=== PATIENT | female | born 1930 ===

== ENCOUNTER 2018-06-22 16:40 | Inpatient (IN) | payer SELFPAY ==
[2018-06-22 16:42] VITALS: BMI 34.2
--- NOTE | 2018-06-22 16:44 | C.PDOC ---
History Of Present Illness 88 year old female presents to the ED BIBA for altered mental status that began 26 hours ago. As per family, patient is ambulatory but homebound as per baseline. Patient was nonverbal with altered breathing pattern today. HPI limited due to patient's clinical condition. Time Seen by Provider: 06/22/18 16:42 Chief Complaint (Nursing): Altered Mental Status History Per: EMS, Family History/Exam Limitations: Clinical Condition Onset/Duration Of Symptoms: Hrs Onset Of Symptoms: Other (26 hours ago) Current Symptoms Are (Timing): Still Present Usual Baseline: Ambulatory Past Medical History Reviewed: Historical Data, Nursing Documentation, Vital Signs - Medical History PMH: No Chronic Diseases Surgical History: No Surg Hx Family History: States: No Known Family Hx Review Of Systems Review Of Systems: ROS cannot be obtained secondary to pt's inabilty to answer questions. Physical Exam - Physical Exam Appears: Other (unresponsive, PE limited due to pt's clinical condition ) Skin: Warm, Dry Head: Normacephalic Eye(s): bilateral: Other (pinpoint pupils, deviated gaze) Nose: Normal Chest: Symmetrical Cardiovascular: Other (irregularly irregular ) Respiratory: No Rales, No Rhonchi, No Wheezing Extremity: No Normal ROM, Other (flaccid upper and lower extremities ) Neurological/Psych: No Oriented x3, No Normal Speech, Other (unresponsive ) ED Course And Treatment - Laboratory Results Result Diagrams: 06/23/18 04:29 06/23/18 04:29 NIHSS Stroke Scale 2 - Date/Time Evaluation Performed Date Performed: 06/22/18 Time Performed: 16:30 When Was NIHSS Performed: Code Stroke - How Severe is the Stroke Level of Consciousness: 3=Unresponsive LOC to Questions: 2=Neither correct LOC to commands: 2=Neither correct Best Gaze: 1=Partial gaze palsy Visual: 0=No visual loss Facial: 0=Normal Motor Arm - Left: 4=No movement Motor Arm - Right: 4=No movement Motor Leg - Left: 4=No movement Motor Leg - Right: 4=No movement Limb Ataxia: 0=Absent Sensory: 0=Normal Best Language: 3=Mute Dysarthia: 0=Normal articulation Extinction & Inattention (Neglect): 0=Normal, no object Score: 27 rTPA Inclusion/Exclusion - Refusal of Treatment Patient Refused Treatment: No - Inclusion Criteria for Altepase Patient is 18 years or Older: Yes Clinical DX Ischemic Stroke Cause Neurological Deficit: Yes Time of Onset Established Less Than 270 Mins Before TX Begin: No Risk/Benefit Discussed With Patient/Family Member Present: No - Exclusion Criteria for Altepase Uncontrolled Hypertension at Time of TX (SBP>185 or DBP>110): No Less Than 3 Months Had a Recent: Intracranial - Warning to TPA With Conditions Condition: Age Greater Than 75 years, Stroke Severity Too Severe (NIHSS greater than 22) Additional Condition (For 3-4.5 Hour Window): Age Greater Than 80 Medical Decision Making Medical Decision Making: Plan - Bloodwork - CT head/neck - CT head - EKG - CXR - UA - Aspirin 300mg TX - IV fluids - Stroke team consult Code Stroke called. Findings discussed with Radiology. Spoke with Dr. Selby, Neurology. Recommends Aspirin TX and BP control. Discussed with family, patient has a DNR/DNI. Disposition Doctor Will See Patient In The: Hospital Counseled Patient/Family Regarding: Studies Performed, Diagnosis - Disposition Disposition: HOSPITALIZED Disposition Time: 15:00 Condition: CRITICAL - Clinical Impression Clinical Impression: Ischemic stroke - Scribe Statement The provider has reviewed the documentation as recorded by the Scribe Sarah Desai All medical record entries made by the Mariellaibe were at my direction and personally dictated by me. I have reviewed the chart and agree that the record accurately reflects my personal performance of the history, physical exam, medical decision making, and the department course for this patient. I have also personally directed, reviewed, and agree with the discharge instructions and disposition.
[2018-06-22] MEDS ORDERED: Sodium Chloride 0.9% 1,000 ML IV SCH (16:45)
--- NOTE | 2018-06-22 17:20 | CT ---
Date of service: 06/22/2018 PROCEDURE: CT HEAD WITHOUT CONTRAST. HISTORY: Code Stroke COMPARISON: None available. TECHNIQUE: Axial computed tomography images were obtained through the head/brain without intravenous contrast. Radiation dose: Total exam DLP = 957.97 mGy-cm. This CT exam was performed using one or more of the following dose reduction techniques: Automated exposure control, adjustment of the mA and/or kV according to patient size, and/or use of iterative reconstruction technique. FINDINGS: HEMORRHAGE: No intracranial hemorrhage. BRAIN: Cytotoxic edema is identified affecting the right MCA distribution in nearly its entirety, with lucency at the inferior right cerebellar hemisphere compatible with subsegmental right DATA QUALITY CONSULTANT distribution infarct. Local mass effect effaces sulci of the majority the right cerebral hemisphere and partially effaces the right lateral ventricle as well. Midline leftward shift of 5 mm is results from the MCA infarct. No definite intra cranial hemorrhage appreciable at this time. VENTRICLES: No hydrocephalus. Effacement of right lateral ventricle as discussed above. CALVARIUM: Unremarkable. PARANASAL SINUSES: Unremarkable as visualized. No significant inflammatory changes. MASTOID AIR CELLS: Unremarkable as visualized. No inflammatory changes. OTHER FINDINGS: None. IMPRESSION: Large right MCA infarct in evolution with small right DATA QUALITY CONSULTANT infarct affecting right cerebellar hemisphere inferiorly, reflecting direct as well as a bile leak ischemic mechanism. No intracranial hemorrhage appreciable. Limited leftward midline shift of left less than 5 mm the local sulci throughout the right cerebral hemisphere as well as right lateral ventricle are at least partially effaced. Findings discussed with Dr. Paez with written down and read back verification 06/22/2018 5:12 p.m..
[2018-06-22 17:31] LABS: BASO # 0.1 K/uL (0.0-0.2); BASO % 0.5 % (0.0-2.0); HEMOGLOBIN 14.2 g/dL (11.0-16.0); LYMPH # 0.4 K/uL (1.0-4.3); LYMPH % 2.4 % (20.0-40.0); MEAN CELL VOLUME 81.6 fL (81.0-99.0); MEAN CORPUSCULAR HEMOGLOBIN 26.2 pg (27.0-31.0); MEAN PLATELET VOLUME 10.7 fL (7.2-11.7); MONO # 1.4 K/uL (0.0-0.8); MONO % 7.9 % (0.0-10.0); NEUT # 15.6 K/uL (1.8-7.0); NEUT % 89.2 % (50.0-75.0); PLATELET COUNT 189 K/uL (130-400); RBC 5.44 Mil/uL (3.80-5.20); RED CELL DISTRIBUTION WIDTH 14.9 % (11.5-14.5); WHITE BLOOD COUNT 17.4 K/uL (4.8-10.8)
--- NOTE | 2018-06-22 17:38 | CT ---
Date of service: 06/22/2018 PROCEDURE: CT Angiography of the Brain and Neck. HISTORY: change of MS COMPARISON: None available. TECHNIQUE: CT angiography of the head and neck was performed following intravenous contrast administration. Coronal and sagittal maximum intensity projection reformatted images were generated. Contrast Dose: Visipaque 320, 100 cc Radiation dose: Total exam DLP = 603.15 mGy-cm. This CT exam was performed using one or more of the following dose reduction techniques: Automated exposure control, adjustment of the mA and/or kV according to patient size, and/or use of iterative reconstruction technique. FINDINGS: INTERNAL CEREBRAL ARTERIES: The right internal carotid artery remains occluded from skull base through supraclinoid segments, without reconstitution. The left skull base, petrous, cavernous and supraclinoid segments are widely patent. Trace atherosclerotic plaques identified at the left ICA cavernous segment. ANTERIOR CEREBRAL ARTERIES: The left A1 and A2 [place] segments are widely patent and well opacified. Cross-filling of the right A2 and A3 branches is a accomplished through a patent anterior communicating artery. The right A1 segment is only opacified at mid and distal segments. MIDDLE CEREBRAL ARTERIES: The right M1 and M2 MCA segments are poorly identified, however, perisylvian and M3 branches are opacified through collaterals but are not as enhances brightly as the left perisylvian and M3 branches. The left M1 and M2 segments are widely patent with left perisylvian branches patent grossly. POSTERIOR CIRCULATION: Basilar Artery: Unremarkable. Distal Vertebral Arteries: Left dominant vertebrobasilar circulation is encountered with both distal vertebral arteries patent. Posterior Cerebral Arteries: Unremarkable. Posterior Inferior Cerebellar Arteries: Unremarkable. 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 Common Carotid arteries: Variable atherosclerosis appreciated primarily represented by soft plaque at the proximal and mid segments of the right common carotid artery without significant stenosis occurring. It appears patent through its bifurcation. Left common carotid artery is widely patent throughout with only trace atherosclerotic plaque related, partially calcified. No evidence to suggest common carotid artery dissection. There is moderate ectasis of the proximal bilateral common carotid arteries as well as the brachycephalic artery. Internal Carotid arteries: The right internal carotid artery is occluded at its origin. No reconstitution is appreciated throughout the remainder of the right ICA. The left ICA is widely patent. No dissection is appreciated within opacified ICA segments bilaterally. External Carotid arteries: There is a moderate stenosis of the proximal right ECA which is otherwise widely patent. Left ECA appears unremarkable. Vertebral arteries: The bilateral vertebral arteries appear normal in caliber from their origins to their distal cervical segments. No significant stenosis or definite pattern of dissection. ANEURYSM/ VASCULAR MALFORMATIONS: None. OTHER FINDINGS: None. IMPRESSION: 1. 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 Right M1 M2 MCA branches are occluded as well as proximal right A1 [place] branch. Collateralization reconstitutes mid distal right A1 [place] as well as perisylvian and M3 MCA branches right MCA. 2. Other than limited atherosclerotic plaque at the cavernous left ICA, the left neck and head angiography appears widely patent without significant stenosis. 3. 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 Findings discussed with Dr. Paez with written down and read back verification 06/22/2018, 5:30 p.m..
[2018-06-22 17:41] LABS: INR 1.4; PROTHROMBIN TIME 14.9 SECONDS (9.7-12.2)
[2018-06-22 17:44] LABS: ALB/GLOB RATIO 0.9 (1.0-2.1); ALBUMIN 3.1 g/dL (3.5-5.0); CALCIUM 9.3 mg/dl (8.6-10.4)
[2018-06-22 18:00] LABS: TROPONIN I 0.683 ng/mL (0.00-0.120)
--- NOTE | 2018-06-22 18:15 | RAD ---
Date of service: 06/22/2018 HISTORY: Code Stroke COMPARISON: No prior. FINDINGS: LUNGS: Cardiomegaly identified without definite pulmonary vascular congestion evident. Reticular markings are diffuse identified which may indicate chronic interstitial pulmonary disease no acute component is not excluded. No right pleural effusion. No pneumothorax bilaterally. Trace of pleural effusion not excluded. PLEURA: As above. CARDIOVASCULAR: Calcific atherosclerotic changes are seen related to the thoracic aorta. Unipolar permanent cardiac pacemaker is advised placed via left subclavian approach with the generator overlying the left pectoralis region and solitary lead extending to the heart. OSSEOUS STRUCTURES: No significant abnormalities. VISUALIZED UPPER ABDOMEN: Normal. OTHER FINDINGS: None. IMPRESSION: Cyst findings suspicious for probable chronic interstitial pneumonitis though an acute component is not excluded overlying this. Cardiomegaly. No pulmonary vascular congestion. Trace left pleural effusion not excluded.
--- NOTE | 2018-06-22 18:20 | CP.PCM.HP ---
<Estrella Chilel - Last Filed: 06/22/18 19:14> History of Present Illness - History of Present Illness History of Present Illness: PGY1 Medicine History and Physical Exam Note for Dr. John Patient is an 87 year old [place] Leonean speaking female with a PMH of CAD, CHF, Atrial fibrillation, pacemaker, HTN, iron deficiency anemia, HLD, gastritis, aortic aneurysm, and thyroid nodule who was brought in by EMS due to being found unresponsive by family members at home. Patient lives at home and usually is responsive and able to communicate. Per Patient's family, Patient was last seen normal at 2PM yesterday, but she became complete unresponsive and flaccid, per Family, which prompted them to call EMS. Patient has known heart condition and HTN and has a pace-maker (per Patient's family.) Complete ROS could not be obtained due to clinical condition. PMH: CAD, CHF, Atrial Fibrillation, pacemaker, HTN, iron deficiency anemia, HLD, gastritis, aortic aneurysm, and thyroid nodule Meds: Eliquis 5 mg twice daily Lasix 40 mg daily Metoprolol succinate 25 mg daily Ferrous Sulfate 325 mg daily Losartan 50 mg daily Oxycodone 1 tab every 4 hours as needed for pain Colace 100 mg twice daily Allergies: NKDA PSH: Pacemaker FH: denies SH: occasional alcohol drinker, denies tobacco and elicit drug use Present on Admission - Present on Admission Any Indicators Present on Admission: No History of DVT/PE: No History of Uncontrolled Diabetes: No Urinary Catheter: No Decubitus Ulcer Present: No Review of Systems - Review of Systems Systems not reviewed;Unavailable: Acuity of Condition, Other (Unable to obtain complete ROS due to clinical condition; Patient unresponsive ) Past Patient History - Past Social History Smoking Status: Unknown If Ever Smoked - PSYCHIATRIC Hx Substance Use: No - SURGICAL HISTORY Hx Surgeries: No - ANESTHESIA Hx Anesthesia: No Meds Allergies/Adverse Reactions: Allergies Allergy/AdvReac Type Severity Reaction Status Date / Time No Known Allergies Allergy Verified 06/22/18 16:42 Physical Exam - Constitutional Appears: Chronically Ill Additional comments: unresponsive. - Head Exam Head Exam: ATRAUMATIC, NORMAL INSPECTION, NORMOCEPHALIC - Eye Exam Eye Exam: absent: PERRL Pupil Exam: Fixed - ENT Exam ENT Exam: Mucous Membranes Dry - Neck Exam Neck exam: Positive for: Normal Inspection - Respiratory Exam Respiratory Exam: Clear to Auscultation Bilateral - Cardiovascular Exam Cardiovascular Exam: +S1, +S2 Additional comments: ventricular paced rhythm - GI/Abdominal Exam GI & Abdominal Exam: absent: Distended, Guarding - Extremities Exam Additional comments: bilateral LE cool to touch and appear mottled - Neurological Exam Additional comments: Patient unresponsive to pain and/or name Corneal reflex absent - Expanded Neurological Exam Expanded Coma Scale Eye Opening: SPONTANEOUS Coma Scale Verbal: None - Skin Skin Exam: Dry, Pallor Additional comments: bilateral lower extremities are mottled Results - Vital Signs Recent Vital Signs: Last Vital Signs Temp Pulse Resp 12 06/22/18 16:42 BP Pulse Ox 100 06/22/18 16:42 - Labs Result Diagrams: 06/22/18 17:26 06/22/18 17:26 Labs: Laboratory Results - last 24 hr 06/22/18 06/22/18 06/22/18 17:26 17:26 17:26 WBC 17.4 H RBC 5.44 H Hgb 14.2 Hct 44.4 MCV 81.6 MCH 26.2 L MCHC 32.0 L RDW 14.9 H Plt Count 189 MPV 10.7 Neut % (Auto) 89.2 H Lymph % (Auto) 2.4 L [place] % (Auto) 7.9 Eos % (Auto) 0.0 Baso % (Auto) 0.5 Neut # (Auto) 15.6 H Lymph # (Auto) 0.4 L [place] # (Auto) 1.4 H Eos # (Auto) 0.0 Baso # (Auto) 0.1 PT 14.9 H INR 1.4 APTT 29 Sodium 140 Potassium 4.7 Chloride 104 Carbon Dioxide 27 Anion Gap 14 BUN 44 H Creatinine 2.0 H Est GFR ( Amer) 28 Est GFR (Non-Af Amer) 23 Random Glucose 132 H Hemoglobin A1c Calcium 9.3 Total Bilirubin 1.4 H AST 378 H ALT 68 H Alkaline Phosphatase 73 Troponin I 0.6830 H* Total Protein 6.6 Albumin 3.1 L Globulin 3.5 Albumin/Globulin Ratio 0.9 L Triglycerides 184 H Cholesterol 160 LDL Cholesterol Direct 119 HDL Cholesterol 24 L Blood Type Antibody Screen 06/22/18 06/22/18 17:26 17:26 WBC RBC Hgb Hct MCV MCH MCHC RDW Plt Count MPV Neut % (Auto) Lymph % (Auto) [place] % (Auto) Eos % (Auto) Baso % (Auto) Neut # (Auto) Lymph # (Auto) [place] # (Auto) Eos # (Auto) Baso # (Auto) PT INR APTT Sodium Potassium Chloride Carbon Dioxide Anion Gap BUN Creatinine Est GFR ( Amer) Est GFR (Non-Af Amer) Random Glucose Hemoglobin A1c 5.4 Calcium Total Bilirubin AST ALT Alkaline Phosphatase Troponin I Total Protein Albumin Globulin Albumin/Globulin Ratio Triglycerides Cholesterol LDL Cholesterol Direct HDL Cholesterol Blood Type A POSITIVE Antibody Screen Negative - EKG Data EKG comments: ventricular paced Assessment & Plan - Assessment and Plan (Free Text) Assessment: Unresponsive likely secondary to thromboembolic event - R MCA and R HEMODIALYSIS TECHNICIAN ischemic stroke - CTA: R ICA occluded at its origin without reconstitution throughout the remainder. Pulmonary artery hypertension. Please see official report; - CT head W/O contrast: Large R MCA infarct in evolution with small right HEMODIALYSIS TECHNICIAN infarct affecting right cerebellar hemisphere inferiorly. Please see official report - ASA 81mg AR daily - IVF @150mL/hr - Patient's family expresses wishes for DNR and DNI, and their wishes for the Patient to be on hospice care - Antionette (Patient's Daughter) phone number: - Palliative Care consult ACS rule-out, elevated troponin - EKG paced - F/U Repeat EKG - F/U XOCHILT x3 Q6H - CXR: Cyst findings suspicious for possible chronic interstitial pneumonitis though an acute component is not excluded overlying this. Cardiomegaly. Trace left pleural effusion not excluded. - Troponin =0.6830 at 17:26 - Hold on Cardiology Consult at this time, as Patient's Family is interested in Hospice Care - Palliative care consulted Leukocytosis, likely reactive - WBC=17.4 on admission History of Pulmonary Emboli - Previous admission reports Right calf pain and elevated D-dimer - Imaging: * Previous admission CTA: Pulmonary emboli, pulmonary hypertension, heterogeneous thyroid, and ectasia of ascending thoracic aorta, up to 4.0 cm in diameter (see full report) * EKG: ventricular paced rhythm Congestive Heart Failure - Hold home meds Lasix 40 mg daily Losartan 50 mg daily Toprol XL 25 mg daily Hold crestor due to transaminitis History of A-fib - Hold Eliquis 5 mg PO BID - Has Pacemaker Hyperlipidemia - Lipid panel - Hold statin due to transaminitis Hypertension - Hold Losartan 50 mg daily - Hold Toprol XL 25 mg daily Iron deficiency anemia - H&H stable at this time History of Ascending aortic aneurysm - CTA 07/20/17: Pulmonary emboli, pulmonary hypertension, heterogeneous thyroid, and ectasia of ascending thoracic aorta, up to 4.0 cm in diameter (see full report) Patient seen and case discussed in detail with Dr. Dora Chilel PGY1 <Eric John H - Last Filed: 06/23/18 07:28> Results - Vital Signs Recent Vital Signs: Last Vital Signs Temp 98.8 F 06/23/18 06:32 Pulse 80 06/23/18 06:32 Resp 15 06/23/18 06:32 BP 140/68 06/23/18 06:32 Pulse Ox 100 06/23/18 06:32 - Labs Result Diagrams: 06/23/18 04:29 06/23/18 04:29 Labs: Laboratory Results - last 24 hr 06/22/18 06/22/18 06/22/18 17:26 17:26 17:26 WBC 17.4 H RBC 5.44 H Hgb 14.2 Hct 44.4 MCV 81.6 MCH 26.2 L MCHC 32.0 L RDW 14.9 H Plt Count 189 MPV 10.7 Neut % (Auto) 89.2 H Lymph % (Auto) 2.4 L [place] % (Auto) 7.9 Eos % (Auto) 0.0 Baso % (Auto) 0.5 Neut # (Auto) 15.6 H Lymph # (Auto) 0.4 L [place] # (Auto) 1.4 H Eos # (Auto) 0.0 Baso # (Auto) 0.1 Neutrophils % (Manual) 91 H Band Neutrophils % Lymphocytes % (Manual) 2 L Reactive Lymphs % Monocytes % (Manual) 7 Platelet Estimate Normal Poikilocytosis (manual Slight Anisocytosis (manual) Slight PT 14.9 H INR 1.4 APTT 29 Sodium 140 Potassium 4.7 Chloride 104 Carbon Dioxide 27 Anion Gap 14 BUN 44 H Creatinine 2.0 H Est GFR ( Amer) 28 Est GFR (Non-Af Amer) 23 Random Glucose 132 H Hemoglobin A1c Calcium 9.3 Phosphorus Magnesium Total Bilirubin 1.4 H AST 378 H ALT 68 H Alkaline Phosphatase 73 Total Creatine Kinase CK-MB (Mass) Troponin I 0.6830 H* Total Protein 6.6 Albumin 3.1 L Globulin 3.5 Albumin/Globulin Ratio 0.9 L Triglycerides 184 H Cholesterol 160 LDL Cholesterol Direct 119 HDL Cholesterol 24 L Urine Color Urine Clarity Urine pH Ur Specific [place] Urine Protein Urine Glucose (UA) Urine Ketones Urine Blood Urine Nitrate Urine Bilirubin Urine Urobilinogen Ur Leukocyte Esterase Urine WBC (Auto) Urine RBC (Auto) Ur Squamous Epith Cells Urine Bacteria Blood Type Antibody Screen 06/22/18 06/22/18 06/22/18 17:26 17:26 21:42 WBC RBC Hgb Hct MCV MCH MCHC RDW Plt Count MPV Neut % (Auto) Lymph % (Auto) [place] % (Auto) Eos % (Auto) Baso % (Auto) Neut # (Auto) Lymph # (Auto) [place] # (Auto) Eos # (Auto) Baso # (Auto) Neutrophils % (Manual) Band Neutrophils % Lymphocytes % (Manual) Reactive Lymphs % Monocytes % (Manual) Platelet Estimate Poikilocytosis (manual Anisocytosis (manual) PT INR APTT Sodium Potassium Chloride Carbon Dioxide Anion Gap BUN Creatinine Est GFR ( Amer) Est GFR (Non-Af Amer) Random Glucose Hemoglobin A1c 5.4 Calcium Phosphorus Magnesium Total Bilirubin AST ALT Alkaline Phosphatase Total Creatine Kinase 69244 H CK-MB (Mass) 77.5 H Troponin I 0.7910 H* Total Protein Albumin Globulin Albumin/Globulin Ratio Triglycerides Cholesterol LDL Cholesterol Direct HDL Cholesterol Urine Color Urine Clarity Urine pH Ur Specific [place] Urine Protein Urine Glucose (UA) Urine Ketones Urine Blood Urine Nitrate Urine Bilirubin Urine Urobilinogen Ur Leukocyte Esterase Urine WBC (Auto) Urine RBC (Auto) Ur Squamous Epith Cells Urine Bacteria Blood Type A POSITIVE Antibody Screen Negative 06/23/18 06/23/18 06/23/18 04:29 04:29 04:29 WBC 18.6 H RBC 5.72 H Hgb 15.1 Hct 46.9 MCV 81.9 MCH 26.4 L MCHC 32.2 L RDW 15.0 H Plt Count 189 MPV 10.9 Neut % (Auto) 88.2 H Lymph % (Auto) 2.7 L [place] % (Auto) 9.0 Eos % (Auto) 0.0 Baso % (Auto) 0.1 Neut # (Auto) 16.4 H Lymph # (Auto) 0.5 L [place] # (Auto) 1.7 H Eos # (Auto) 0.0 Baso # (Auto) 0.0 Neutrophils % (Manual) 80 H Band Neutrophils % 2 Lymphocytes % (Manual) 5 L Reactive Lymphs % 5 H Monocytes % (Manual) 8 Platelet Estimate Normal Poikilocytosis (manual Anisocytosis (manual) PT INR APTT Sodium 142 Potassium 4.4 Chloride 108 H Carbon Dioxide 28 Anion Gap 11 BUN 48 H Creatinine 1.9 H Est GFR ( Amer) 30 Est GFR (Non-Af Amer) 25 Random Glucose 137 H Hemoglobin A1c Calcium 8.9 Phosphorus 5.2 H Magnesium 2.1 Total Bilirubin 1.2 AST 402 H ALT 81 H Alkaline Phosphatase 89 Total Creatine Kinase 26421 H CK-MB (Mass) 68.8 H Troponin I 0.5160 H* Total Protein 7.0 Albumin 3.2 L Globulin 3.8 Albumin/Globulin Ratio 0.9 L Triglycerides Cholesterol LDL Cholesterol Direct HDL Cholesterol Urine Color Urine Clarity Urine pH Ur Specific [place] Urine Protein Urine Glucose (UA) Urine Ketones Urine Blood Urine Nitrate Urine Bilirubin Urine Urobilinogen Ur Leukocyte Esterase Urine WBC (Auto) Urine RBC (Auto) Ur Squamous Epith Cells Urine Bacteria Blood Type Antibody Screen 06/23/18 04:31 WBC RBC Hgb Hct MCV MCH MCHC RDW Plt Count MPV Neut % (Auto) Lymph % (Auto) [place] % (Auto) Eos % (Auto) Baso % (Auto) Neut # (Auto) Lymph # (Auto) [place] # (Auto) Eos # (Auto) Baso # (Auto) Neutrophils % (Manual) Band Neutrophils % Lymphocytes % (Manual) Reactive Lymphs % Monocytes % (Manual) Platelet Estimate Poikilocytosis (manual Anisocytosis (manual) PT INR APTT Sodium Potassium Chloride Carbon Dioxide Anion Gap BUN Creatinine Est GFR ( Amer) Est GFR (Non-Af Amer) Random Glucose Hemoglobin A1c Calcium Phosphorus Magnesium Total Bilirubin AST ALT Alkaline Phosphatase Total Creatine Kinase CK-MB (Mass) Troponin I Total Protein Albumin Globulin Albumin/Globulin Ratio Triglycerides Cholesterol LDL Cholesterol Direct HDL Cholesterol Urine Color [place] Urine Clarity Clear Urine pH 5.0 Ur Specific [place] 1.046 H Urine Protein 1+ H Urine Glucose (UA) Normal Urine Ketones Negative Urine Blood 3+ H Urine Nitrate Negative Urine Bilirubin Negative Urine Urobilinogen 4.0 H Ur Leukocyte Esterase 3+ H Urine WBC (Auto) 46 H Urine RBC (Auto) 25 H Ur Squamous Epith Cells 3 Urine Bacteria Few H Blood Type Antibody Screen Attending/Attestation - Attestation I have personally seen and examined this patient.: Yes I have fully participated in the care of the patient.: Yes I have reviewed all pertinent clinical information: Yes Notes (Text): 06/23/18 07:23 Medical attending: Patient was seen and examined by me. Agree with the above note by the resident We spoke with her family members at bedside and they confirmed that they felt it would be in the best interest of patient to be DNR and DNI. On exam the patient was non responsive to stimuli and lack of pupillary response. We explained to them the CTA results. We will get a pallitative care evaluation for now Also IVF and OLIVER John
[2018-06-22 19:00] LABS: LYMPHOCYTE 2 % (20-40); MONOCYTE 7 % (0-10); NEUTROPHIL 91 % (50-75); TOTAL CELLS COUNTED 100
[2018-06-22 19:01] LABS: ANISOCYTOSIS SLIGHT; PLATELET ESTIMATE NORMAL (NORMAL); POIKILOCYTOSIS SLIGHT
[2018-06-22] MEDS: Sodium Chloride 0.9% 1,000 ML IV SCH (19:14)
[2018-06-22 22:10] LABS: CK-MB 77.5 ng/mL (0.0-3.38); TROPONIN I 0.791 ng/mL (0.00-0.120)
[2018-06-23] MEDS: Sodium Chloride 0.9% 1,000 ML IV SCH ×4 (01:10→21:59)
[2018-06-23 04:40] LABS: BASO % 0.1 % (0.0-2.0); HEMOGLOBIN 15.1 g/dL (11.0-16.0); LYMPH # 0.5 K/uL (1.0-4.3); LYMPH % 2.7 % (20.0-40.0); MEAN CELL VOLUME 81.9 fL (81.0-99.0); MEAN CORPUSCULAR HEMOGLOBIN 26.4 pg (27.0-31.0); MEAN CORPUSCULAR HGB CONC 32.2 g/dL (33.0-37.0); MEAN PLATELET VOLUME 10.9 fL (7.2-11.7); MONO # 1.7 K/uL (0.0-0.8); NEUT # 16.4 K/uL (1.8-7.0); NEUT % 88.2 % (50.0-75.0); PLATELET COUNT 189 K/uL (130-400); RBC 5.72 Mil/uL (3.80-5.20); WHITE BLOOD COUNT 18.6 K/uL (4.8-10.8)
[2018-06-23 04:41] LABS: SQUAMOUS EPITHIAL 3 /hpf (0-5); URINE BACTERIA FEW (<OCC); URINE BILIRUBIN NEGATIVE (NEGATIVE); URINE BLOOD 3+ (NEGATIVE); URINE CLARITY Clear (Clear); URINE COLOR Amber (YELLOW); URINE GLUCOSE (UA) NORMAL (Normal); URINE LEUKOCYTE ESTERASE 3+ Leu/uL (Negative); URINE PROTEIN 1+ mg/dL (NEGATIVE)
[2018-06-23 05:04] LABS: ALB/GLOB RATIO 0.9 (1.0-2.1); ALBUMIN 3.2 g/dL (3.5-5.0); CALCIUM 8.9 mg/dl (8.6-10.4)
[2018-06-23 05:09] LABS: CK-MB 68.8 ng/mL (0.0-3.38); TROPONIN I 0.516 ng/mL (0.00-0.120)
[2018-06-23 06:16] LABS: BANDS 2 % (0-2); LYMPHOCYTE 5 % (20-40); MONOCYTE 8 % (0-10); NEUTROPHIL 80 % (50-75); PLATELET ESTIMATE NORMAL (NORMAL); REACTIVE LYMPHOCYTES 5 % (0-0); TOTAL CELLS COUNTED 100
--- NOTE | 2018-06-23 07:29 | CP.PCM.PN ---
Subjective - Date & Time of Evaluation Date of Evaluation: 06/23/18 Time of Evaluation: 07:28 - Subjective Subjective: Resident Progress Note for Hospitalist Service Objective - Vital Signs/Intake and Output Vital Signs (last 24 hours): Temp Pulse Resp BP Pulse Ox 98.8 F 80 15 140/68 100 06/23/18 06:32 06/23/18 06:32 06/23/18 06:32 06/23/18 06:32 06/23/18 06:32 Intake and Output: 06/23/18 06/23/18 06:59 18:59 Output Total 50 Balance -50 - Medications Medications: Current Medications Aspirin (Aspirin Supp) 81 mg OK DAILY [facility] Sodium Chloride (Sodium Chloride 0.9%) 1,000 mls @ 100 mls/hr IV .Q10H [facility] Last Admin: 06/22/18 17:37 Dose: 100 mls/hr Sodium Chloride (Sodium Chloride 0.9%) 1,000 mls @ 150 mls/hr IV .Q6H40M [facility] Last Admin: 06/23/18 01:10 Dose: 150 mls/hr - Labs Labs: 06/23/18 04:29 06/23/18 04:29 PT 14.9 SECONDS (9.7-12.2) H 06/22/18 17:26 INR 1.4 06/22/18 17:26 APTT 29 SECONDS (21-34) 06/22/18 17:26
--- NOTE | 2018-06-23 09:31 | CP.PCM.CON ---
History of Present Illness - History of Present Illness History of Present Illness: Neurology Consult Note HPI: Patient is a 88 year old female who was brought in by family for altered mental status. Family not present at bedside. As per prior charts, patient was last seen normal on 06/21/18 at 2pm and was brought in on 06/22 by family after she continued to be unresponsive to family at home. Patient does not provide any history on her own. Unable to obtain ROS. Patient has been nonverbal since arrival here at hospital. PMH: CAD, CHF, A fib, pacemaker, HTN, iron deficiency anemia, HLD, gastritis, aortic aneurysm, thyroid nodules Home meds: Eliquis, Lasix, Metoprolol, Ferrous sulfate, Losartan, Oxycodone, Colace PSH: pacemaker Social hx: occasional alcohol, no tobacco or drug use. Allergies: NKDA Code status: DNR/DNI Review of Systems - Review of Systems Systems not reviewed;Unavailable: Altered Mental Status Past Patient History - Past Social History Smoking Status: Unknown If Ever Smoked - PSYCHIATRIC Hx Substance Use: No - SURGICAL HISTORY Hx Surgeries: No - ANESTHESIA Hx Anesthesia: No Meds Allergies/Adverse Reactions: Allergies Allergy/AdvReac Type Severity Reaction Status Date / Time No Known Allergies Allergy Verified 06/22/18 16:42 - Medications Medications: Current Medications Aspirin (Aspirin Supp) 81 mg ND DAILY [facility] Sodium Chloride (Sodium Chloride 0.9%) 1,000 mls @ 150 mls/hr IV .Q6H40M [facility] Last Admin: 06/23/18 08:20 Dose: 150 mls/hr Physical Exam - Constitutional Additional comments: withdraws to pain and sternal rub. - Head Exam Head Exam: ATRAUMATIC, NORMOCEPHALIC - Eye Exam Additional comments: Pupillary reflexes intact. - ENT Exam ENT Exam: Mucous Membranes Dry - Respiratory Exam Respiratory Exam: Wheezes - Cardiovascular Exam Cardiovascular Exam: +S1, +S2 Additional comments: Pacemaker in place - Extremities Exam Additional comments: Upper extremities: cold, mottled Lower extremities: cold to touch - Neurological Exam Additional comments: Withdraws to pain, and sternal rub Does not open eyes spontaneously Non verbal Moves right arm and right leg spontaneously Does not appear to move left arm or left leg spontaneously Results - Vital Signs Recent Vital Signs: Last Vital Signs Temp 98.8 F 06/23/18 06:32 Pulse 80 06/23/18 07:37 Resp 13 06/23/18 07:37 BP 128/64 06/23/18 07:37 Pulse Ox 100 06/23/18 07:37 - Labs Result Diagrams: 06/23/18 04:29 06/23/18 04:29 Labs: Laboratory Results - last 24 hr 06/22/18 06/22/18 06/22/18 17:26 17:26 17:26 WBC 17.4 H RBC 5.44 H Hgb 14.2 Hct 44.4 MCV 81.6 MCH 26.2 L MCHC 32.0 L RDW 14.9 H Plt Count 189 MPV 10.7 Neut % (Auto) 89.2 H Lymph % (Auto) 2.4 L [place] % (Auto) 7.9 Eos % (Auto) 0.0 Baso % (Auto) 0.5 Neut # (Auto) 15.6 H Lymph # (Auto) 0.4 L [place] # (Auto) 1.4 H Eos # (Auto) 0.0 Baso # (Auto) 0.1 Neutrophils % (Manual) 91 H Band Neutrophils % Lymphocytes % (Manual) 2 L Reactive Lymphs % Monocytes % (Manual) 7 Platelet Estimate Normal Poikilocytosis (manual Slight Anisocytosis (manual) Slight PT 14.9 H INR 1.4 APTT 29 Sodium 140 Potassium 4.7 Chloride 104 Carbon Dioxide 27 Anion Gap 14 BUN 44 H Creatinine 2.0 H Est GFR ( Amer) 28 Est GFR (Non-Af Amer) 23 Random Glucose 132 H Hemoglobin A1c Calcium 9.3 Phosphorus Magnesium Total Bilirubin 1.4 H AST 378 H ALT 68 H Alkaline Phosphatase 73 Total Creatine Kinase CK-MB (Mass) Troponin I 0.6830 H* Total Protein 6.6 Albumin 3.1 L Globulin 3.5 Albumin/Globulin Ratio 0.9 L Triglycerides 184 H Cholesterol 160 LDL Cholesterol Direct 119 HDL Cholesterol 24 L Urine Color Urine Clarity Urine pH Ur Specific [place] Urine Protein Urine Glucose (UA) Urine Ketones Urine Blood Urine Nitrate Urine Bilirubin Urine Urobilinogen Ur Leukocyte Esterase Urine WBC (Auto) Urine RBC (Auto) Ur Squamous Epith Cells Urine Bacteria Blood Type Antibody Screen 06/22/18 06/22/18 06/22/18 17:26 17:26 21:42 WBC RBC Hgb Hct MCV MCH MCHC RDW Plt Count MPV Neut % (Auto) Lymph % (Auto) [place] % (Auto) Eos % (Auto) Baso % (Auto) Neut # (Auto) Lymph # (Auto) [place] # (Auto) Eos # (Auto) Baso # (Auto) Neutrophils % (Manual) Band Neutrophils % Lymphocytes % (Manual) Reactive Lymphs % Monocytes % (Manual) Platelet Estimate Poikilocytosis (manual Anisocytosis (manual) PT INR APTT Sodium Potassium Chloride Carbon Dioxide Anion Gap BUN Creatinine Est GFR ( Amer) Est GFR (Non-Af Amer) Random Glucose Hemoglobin A1c 5.4 Calcium Phosphorus Magnesium Total Bilirubin AST ALT Alkaline Phosphatase Total Creatine Kinase 48610 H CK-MB (Mass) 77.5 H Troponin I 0.7910 H* Total Protein Albumin Globulin Albumin/Globulin Ratio Triglycerides Cholesterol LDL Cholesterol Direct HDL Cholesterol Urine Color Urine Clarity Urine pH Ur Specific [place] Urine Protein Urine Glucose (UA) Urine Ketones Urine Blood Urine Nitrate Urine Bilirubin Urine Urobilinogen Ur Leukocyte Esterase Urine WBC (Auto) Urine RBC (Auto) Ur Squamous Epith Cells Urine Bacteria Blood Type A POSITIVE Antibody Screen Negative 06/23/18 06/23/18 06/23/18 04:29 04:29 04:29 WBC 18.6 H RBC 5.72 H Hgb 15.1 Hct 46.9 MCV 81.9 MCH 26.4 L MCHC 32.2 L RDW 15.0 H Plt Count 189 MPV 10.9 Neut % (Auto) 88.2 H Lymph % (Auto) 2.7 L [place] % (Auto) 9.0 Eos % (Auto) 0.0 Baso % (Auto) 0.1 Neut # (Auto) 16.4 H Lymph # (Auto) 0.5 L [place] # (Auto) 1.7 H Eos # (Auto) 0.0 Baso # (Auto) 0.0 Neutrophils % (Manual) 80 H Band Neutrophils % 2 Lymphocytes % (Manual) 5 L Reactive Lymphs % 5 H Monocytes % (Manual) 8 Platelet Estimate Normal Poikilocytosis (manual Anisocytosis (manual) PT INR APTT Sodium 142 Potassium 4.4 Chloride 108 H Carbon Dioxide 28 Anion Gap 11 BUN 48 H Creatinine 1.9 H Est GFR ( Amer) 30 Est GFR (Non-Af Amer) 25 Random Glucose 137 H Hemoglobin A1c Calcium 8.9 Phosphorus 5.2 H Magnesium 2.1 Total Bilirubin 1.2 AST 402 H ALT 81 H Alkaline Phosphatase 89 Total Creatine Kinase 67396 H CK-MB (Mass) 68.8 H Troponin I 0.5160 H* Total Protein 7.0 Albumin 3.2 L Globulin 3.8 Albumin/Globulin Ratio 0.9 L Triglycerides Cholesterol LDL Cholesterol Direct HDL Cholesterol Urine Color Urine Clarity Urine pH Ur Specific [place] Urine Protein Urine Glucose (UA) Urine Ketones Urine Blood Urine Nitrate Urine Bilirubin Urine Urobilinogen Ur Leukocyte Esterase Urine WBC (Auto) Urine RBC (Auto) Ur Squamous Epith Cells Urine Bacteria Blood Type Antibody Screen 06/23/18 04:31 WBC RBC Hgb Hct MCV MCH MCHC RDW Plt Count MPV Neut % (Auto) Lymph % (Auto) [place] % (Auto) Eos % (Auto) Baso % (Auto) Neut # (Auto) Lymph # (Auto) [place] # (Auto) Eos # (Auto) Baso # (Auto) Neutrophils % (Manual) Band Neutrophils % Lymphocytes % (Manual) Reactive Lymphs % Monocytes % (Manual) Platelet Estimate Poikilocytosis (manual Anisocytosis (manual) PT INR APTT Sodium Potassium Chloride Carbon Dioxide Anion Gap BUN Creatinine Est GFR ( Amer) Est GFR (Non-Af Amer) Random Glucose Hemoglobin A1c Calcium Phosphorus Magnesium Total Bilirubin AST ALT Alkaline Phosphatase Total Creatine Kinase CK-MB (Mass) Troponin I Total Protein Albumin Globulin Albumin/Globulin Ratio Triglycerides Cholesterol LDL Cholesterol Direct HDL Cholesterol Urine Color [place] Urine Clarity Clear Urine pH 5.0 Ur Specific [place] 1.046 H Urine Protein 1+ H Urine Glucose (UA) Normal Urine Ketones Negative Urine Blood 3+ H Urine Nitrate Negative Urine Bilirubin Negative Urine Urobilinogen 4.0 H Ur Leukocyte Esterase 3+ H Urine WBC (Auto) 46 H Urine RBC (Auto) 25 H Ur Squamous Epith Cells 3 Urine Bacteria Few H Blood Type Antibody Screen Assessment & Plan - Assessment and Plan (Free Text) Assessment: 88 year old female who presented for altered mental status and found to have large right sided MCA infarct Plan: Right MCA infarct - CTA head/neck: R ICA occluded at its origin without reconstitution throughout the remainder. Pulmonary artery hypertension.Right M1 M2 MCA branches occluded, proximal right A1 [place] branch occluded. - CT head W/O contrast: Large R MCA infarct in evolution with small right [employer] infarct affecting right cerebellar hemisphere inferiorly. - ASA 81mg ND - NPO, continue NS IV fluids - Repeat CT without contrast ordered, however family requests no further studies and requests comfort measures at this point. - [facility] [address] Devon Broussard, PGY1
--- NOTE | 2018-06-23 10:16 | CP.PCM.PCO ---
Physician Communication Note - Physician Communication Note Physician Communication Note: Family meeting pending for today
--- NOTE | 2018-06-23 10:20 | CP.PCM.CON ---
History of Present Illness - History of Present Illness History of Present Illness: Palliative consult requested by Doctor Chilel for goals of care discussion , possible hospice Patient is a 88 yo woman admitted from home where she was with AMS for > 24 hr. At base line, patient was ambulatory, homebound, usually responsive and able to communicate. Patient found by family flaccid and nonverbal. Last time patient was seen in her normal state of being was at 2 pm , on day of admission. EMS was called and in ED patient was diagnosed with large Right MCA and large PE, according to CT studies. Patient's Troponin level; was elevated X 3. Patient was placed on non rebrither mask and admitted to the floor. Patient's daughter was admitted as well due to sustained stress 2nd to the whole event. Palliative care was asked to assist in goals of care discussion. PMH: CAD, A Fib, PPM, HTN Soc. Hx: lives at home with daughter, homebumeaagn Fam. hX: DENIED Review of Systems - Review of Systems All systems: reviewed and no additional remarkable complaints except Review of Systems: ROS unobtainable from patient due to unresponsivness. ROS obtained from nursing. Per nursing, patient remains unresponsive and afebrile with O2 supplement Past Patient History - Past Social History Smoking Status: Unknown If Ever Smoked - PSYCHIATRIC Hx Substance Use: No - SURGICAL HISTORY Hx Surgeries: No - ANESTHESIA Hx Anesthesia: No Meds Allergies/Adverse Reactions: Allergies Allergy/AdvReac Type Severity Reaction Status Date / Time No Known Allergies Allergy Verified 06/22/18 16:42 - Medications Medications: Current Medications Aspirin (Aspirin Supp) 81 mg [place] DAILY [facility] Sodium Chloride (Sodium Chloride 0.9%) 1,000 mls @ 150 mls/hr IV .Q6H40M [facility] Last Admin: 06/23/18 08:20 Dose: 150 mls/hr Physical Exam - Constitutional Appears: In Acute Distress, Chronically Ill - Head Exam Head Exam: ATRAUMATIC, NORMAL INSPECTION, NORMOCEPHALIC - Eye Exam Eye Exam: EOMI, Normal appearance - ENT Exam ENT Exam: Mucous Membranes Dry - Neck Exam Neck exam: Positive for: Normal Inspection - Respiratory Exam Respiratory Exam: Decreased Breath Sounds, Respiratory Distress - Cardiovascular Exam Cardiovascular Exam: Tachycardia, Irregular Rhythm - GI/Abdominal Exam GI & Abdominal Exam: Soft - Rectal Exam Rectal Exam: Deferred - Exam Additional comments: Duncan cath - Extremities Exam Extremities exam: Positive for: normal inspection - Back Exam Back exam: NORMAL INSPECTION - Neurological Exam Neurological exam: Altered, Motor Sensory Deficit - Psychiatric Exam Psychiatric exam: Flat Affect - Skin Skin Exam: Dry, Intact, Normal Color, Warm Results - Vital Signs Recent Vital Signs: Last Vital Signs Temp 98.8 F 06/23/18 06:32 Pulse 80 06/23/18 07:37 Resp 13 06/23/18 07:37 BP 128/64 06/23/18 07:37 Pulse Ox 100 06/23/18 07:37 - Labs Result Diagrams: 06/23/18 04:29 06/23/18 04:29 Labs: Laboratory Results - last 24 hr 06/22/18 06/22/18 06/22/18 16:36 17:26 17:26 WBC 17.4 H RBC 5.44 H Hgb 14.2 Hct 44.4 MCV 81.6 MCH 26.2 L MCHC 32.0 L RDW 14.9 H Plt Count 189 MPV 10.7 Neut % (Auto) 89.2 H Lymph % (Auto) 2.4 L [place] % (Auto) 7.9 Eos % (Auto) 0.0 Baso % (Auto) 0.5 Neut # (Auto) 15.6 H Lymph # (Auto) 0.4 L [place] # (Auto) 1.4 H Eos # (Auto) 0.0 Baso # (Auto) 0.1 Neutrophils % (Manual) 91 H Band Neutrophils % Lymphocytes % (Manual) 2 L Reactive Lymphs % Monocytes % (Manual) 7 Platelet Estimate Normal Poikilocytosis (manual Slight Anisocytosis (manual) Slight PT 14.9 H INR 1.4 APTT 29 Sodium Potassium Chloride Carbon Dioxide Anion Gap BUN Creatinine Est GFR ( Amer) Est GFR (Non-Af Amer) POC Glucose (mg/dL) 129 H Random Glucose Hemoglobin A1c Calcium Phosphorus Magnesium Total Bilirubin AST ALT Alkaline Phosphatase Total Creatine Kinase CK-MB (Mass) Troponin I Total Protein Albumin Globulin Albumin/Globulin Ratio Triglycerides Cholesterol LDL Cholesterol Direct HDL Cholesterol Urine Color Urine Clarity Urine pH Ur Specific [place] Urine Protein Urine Glucose (UA) Urine Ketones Urine Blood Urine Nitrate Urine Bilirubin Urine Urobilinogen Ur Leukocyte Esterase Urine WBC (Auto) Urine RBC (Auto) Ur Squamous Epith Cells Urine Bacteria Blood Type Antibody Screen 06/22/18 06/22/18 06/22/18 17:26 17:26 17:26 WBC RBC Hgb Hct MCV MCH MCHC RDW Plt Count MPV Neut % (Auto) Lymph % (Auto) [place] % (Auto) Eos % (Auto) Baso % (Auto) Neut # (Auto) Lymph # (Auto) [place] # (Auto) Eos # (Auto) Baso # (Auto) Neutrophils % (Manual) Band Neutrophils % Lymphocytes % (Manual) Reactive Lymphs % Monocytes % (Manual) Platelet Estimate Poikilocytosis (manual Anisocytosis (manual) PT INR APTT Sodium 140 Potassium 4.7 Chloride 104 Carbon Dioxide 27 Anion Gap 14 BUN 44 H Creatinine 2.0 H Est GFR ( Amer) 28 Est GFR (Non-Af Amer) 23 POC Glucose (mg/dL) Random Glucose 132 H Hemoglobin A1c 5.4 Calcium 9.3 Phosphorus Magnesium Total Bilirubin 1.4 H AST 378 H ALT 68 H Alkaline Phosphatase 73 Total Creatine Kinase CK-MB (Mass) Troponin I 0.6830 H* Total Protein 6.6 Albumin 3.1 L Globulin 3.5 Albumin/Globulin Ratio 0.9 L Triglycerides 184 H Cholesterol 160 LDL Cholesterol Direct 119 HDL Cholesterol 24 L Urine Color Urine Clarity Urine pH Ur Specific [place] Urine Protein Urine Glucose (UA) Urine Ketones Urine Blood Urine Nitrate Urine Bilirubin Urine Urobilinogen Ur Leukocyte Esterase Urine WBC (Auto) Urine RBC (Auto) Ur Squamous Epith Cells Urine Bacteria Blood Type A POSITIVE Antibody Screen Negative 06/22/18 06/23/18 06/23/18 21:42 04:29 04:29 WBC RBC Hgb Hct MCV MCH MCHC RDW Plt Count MPV Neut % (Auto) Lymph % (Auto) [place] % (Auto) Eos % (Auto) Baso % (Auto) Neut # (Auto) Lymph # (Auto) [place] # (Auto) Eos # (Auto) Baso # (Auto) Neutrophils % (Manual) Band Neutrophils % Lymphocytes % (Manual) Reactive Lymphs % Monocytes % (Manual) Platelet Estimate Poikilocytosis (manual Anisocytosis (manual) PT INR APTT Sodium 142 Potassium 4.4 Chloride 108 H Carbon Dioxide 28 Anion Gap 11 BUN 48 H Creatinine 1.9 H Est GFR ( Amer) 30 Est GFR (Non-Af Amer) 25 POC Glucose (mg/dL) Random Glucose 137 H Hemoglobin A1c Calcium 8.9 Phosphorus 5.2 H Magnesium 2.1 Total Bilirubin 1.2 AST 402 H ALT 81 H Alkaline Phosphatase 89 Total Creatine Kinase 54171 H 63583 H CK-MB (Mass) 77.5 H 68.8 H Troponin I 0.7910 H* 0.5160 H* Total Protein 7.0 Albumin 3.2 L Globulin 3.8 Albumin/Globulin Ratio 0.9 L Triglycerides Cholesterol LDL Cholesterol Direct HDL Cholesterol Urine Color Urine Clarity Urine pH Ur Specific [place] Urine Protein Urine Glucose (UA) Urine Ketones Urine Blood Urine Nitrate Urine Bilirubin Urine Urobilinogen Ur Leukocyte Esterase Urine WBC (Auto) Urine RBC (Auto) Ur Squamous Epith Cells Urine Bacteria Blood Type Antibody Screen 06/23/18 06/23/18 04:29 04:31 WBC 18.6 H RBC 5.72 H Hgb 15.1 Hct 46.9 MCV 81.9 MCH 26.4 L MCHC 32.2 L RDW 15.0 H Plt Count 189 MPV 10.9 Neut % (Auto) 88.2 H Lymph % (Auto) 2.7 L [place] % (Auto) 9.0 Eos % (Auto) 0.0 Baso % (Auto) 0.1 Neut # (Auto) 16.4 H Lymph # (Auto) 0.5 L [place] # (Auto) 1.7 H Eos # (Auto) 0.0 Baso # (Auto) 0.0 Neutrophils % (Manual) 80 H Band Neutrophils % 2 Lymphocytes % (Manual) 5 L Reactive Lymphs % 5 H Monocytes % (Manual) 8 Platelet Estimate Normal Poikilocytosis (manual Anisocytosis (manual) PT INR APTT Sodium Potassium Chloride Carbon Dioxide Anion Gap BUN Creatinine Est GFR ( Amer) Est GFR (Non-Af Amer) POC Glucose (mg/dL) Random Glucose Hemoglobin A1c Calcium Phosphorus Magnesium Total Bilirubin AST ALT Alkaline Phosphatase Total Creatine Kinase CK-MB (Mass) Troponin I Total Protein Albumin Globulin Albumin/Globulin Ratio Triglycerides Cholesterol LDL Cholesterol Direct HDL Cholesterol Urine Color [place] Urine Clarity Clear Urine pH 5.0 Ur Specific [place] 1.046 H Urine Protein 1+ H Urine Glucose (UA) Normal Urine Ketones Negative Urine Blood 3+ H Urine Nitrate Negative Urine Bilirubin Negative Urine Urobilinogen 4.0 H Ur Leukocyte Esterase 3+ H Urine WBC (Auto) 46 H Urine RBC (Auto) 25 H Ur Squamous Epith Cells 3 Urine Bacteria Few H Blood Type Antibody Screen Assessment & Plan - Assessment and Plan (Free Text) Assessment: Palliative consult DNR/DNI, there is no Advance Directive / POLST on chart, PPS 10% I reviewed all medical records, diagnostic studies and examined patient in bed Patient is unresponsive to verbal stimuli, responsive to deep touch, with eyes closed, non verbal, on nonrebrither mask with O2. O2 Sat 100 %, afebrile. There is no voluntary ROM. Patient is NPO and with IVF for hydration. Duncan at bedside. BP 128/64, HR 80 I learned from nursing that patient's daughter Samy Oaeks was also admitted to room 551 . I met with daughter this morning and found her crying. Patient asked me to talk to her daughter Antionette and gave me Antionette's phone number. After few phone calls and voice mails I have not received call back. However , during the day I was able to contact Antionette trough the 3 rd person. We discussed her grandmother's condition over the phone. Antionette stated that the Doctor had explained to them last night that prognosis was poor and was most likely expected. Antionette stated concerns about her grandmother comfort and wanted her to peacefully. I offered more information about comfort care and asked for permission to precede with it. She agreed. I shared this with dry cleaning manager and ELSA and with Doctor John's vice president of business development. Patient is a self pay and SW was to look into [facility] for home hospice. Yisel and I went to talk to patient's daughter Rafia trying to understand why patient had no insurance and how SS could help her with. Mrs. Morataya stated not feeling well for the discussion. Impression * This is critically ill lady post large MCA and PE * Patient is lethargic and unresponsive * Risk for aspiration * SOB * I feel that this patient will on this hospitalization due to irreversible health damage * Family supports Comfort measures * There is a emotional distress among patient's immediate family members ( daughter Rafia) * Patient is " Self Pay ", questionable admission to Home Hospice Suggestion * Promote comfort by turning and repositioning and promoting skin integrity * Agree with Duncan cath for skin integrity promotion * NPO and IVF for hydration * O2 supplement as needed * Would stop any further blood work or any diagnostic studies and only apply comfort measures such as O2 and IVF * Keep daughter updated on patient's condition to assist her during this very stressful time for her * SS for assistance with lack of health insurance, possible [facility] * Agree with DNR/DNI Patient's daughter wishes her daughter Antionette advocates for patient. Advance care planing 46 min Palliative care will remain on board as needed.
[2018-06-23] MEDS ORDERED: Pneumococcal 23-Valent Vaccine IM ONE (12:15)
--- NOTE | 2018-06-23 13:50 | CP.PCM.DIS ---
Provider - Provider Date of Admission: 06/22/18 17:31 Attending physician: Eric John DO Consults: 06/22/18 16:42 Stroke Team Consult Routine Comment: change of MS, > 24 hrs Consulting Provider: Neurohospitalist Consulting Physician: NEUROHOJAN Neurohospitalist for Consult: Ramiro Selby Neurohospitalist for Consult: Dakota Osorio Reason for Consult: change of MS 06/22/18 18:18 Palliative Care Consult Stat Comment: Consulting Provider: Alecia Covarrubias Physician Instructions: Reason For Exam: S/P stroke. Family considering hospice 06/23/18 12:15 Inpatient MEDICAL FRONT DESK COORDINATOR Core Measures Referral Routine Comment: Physician Instructions: Reason For Exam: chf Nursing Referral for Wound Care Routine Comment: Physician Instructions: Reason For Exam: sacral wound on admission Hospital Course - Lab Results Lab Results: Most Recent Lab Values WBC 18.6 K/uL (4.8-10.8) H 06/23/18 04:29 RBC 5.72 Mil/uL (3.80-5.20) H 06/23/18 04:29 Hgb 15.1 g/dL (11.0-16.0) 06/23/18 04:29 Hct 46.9 % (34.0-47.0) 06/23/18 04:29 MCV 81.9 fL (81.0-99.0) 06/23/18 04:29 MCH 26.4 pg (27.0-31.0) L 06/23/18 04:29 MCHC 32.2 g/dL (33.0-37.0) L 06/23/18 04:29 RDW 15.0 % (11.5-14.5) H 06/23/18 04:29 Plt Count 189 K/uL (130-400) 06/23/18 04:29 MPV 10.9 fL (7.2-11.7) 06/23/18 04:29 Neut % (Auto) 88.2 % (50.0-75.0) H 06/23/18 04:29 Lymph % (Auto) 2.7 % (20.0-40.0) L 06/23/18 04:29 Bailey % (Auto) 9.0 % (0.0-10.0) 06/23/18 04:29 Eos % (Auto) 0.0 % (0.0-4.0) 06/23/18 04:29 Baso % (Auto) 0.1 % (0.0-2.0) 06/23/18 04:29 Neut # (Auto) 16.4 K/uL (1.8-7.0) H 06/23/18 04:29 Lymph # (Auto) 0.5 K/uL (1.0-4.3) L 06/23/18 04:29 Bailey # (Auto) 1.7 K/uL (0.0-0.8) H 06/23/18 04:29 Eos # (Auto) 0.0 K/uL (0.0-0.7) 06/23/18 04:29 Baso # (Auto) 0.0 K/uL (0.0-0.2) 06/23/18 04:29 Neutrophils % (Manual) 80 % (50-75) H 06/23/18 04:29 Band Neutrophils % 2 % (0-2) 06/23/18 04:29 Lymphocytes % (Manual) 5 % (20-40) L 06/23/18 04:29 Reactive Lymphs % 5 % (0-0) H 06/23/18 04:29 Monocytes % (Manual) 8 % (0-10) 06/23/18 04:29 Platelet Estimate Normal (NORMAL) 06/23/18 04:29 Poikilocytosis (manual Slight 06/22/18 17:26 Anisocytosis (manual) Slight 06/22/18 17:26 PT 14.9 SECONDS (9.7-12.2) H 06/22/18 17:26 INR 1.4 06/22/18 17:26 APTT 29 SECONDS (21-34) 06/22/18 17:26 Sodium 142 mmol/L (132-148) 06/23/18 04:29 Potassium 4.4 mmol/L (3.6-5.2) 06/23/18 04:29 Chloride 108 mmol/L (98-107) H 06/23/18 04:29 Carbon Dioxide 28 mmol/L (22-30) 06/23/18 04:29 Anion Gap 11 (10-20) 06/23/18 04:29 BUN 48 mg/dL (7-17) H 06/23/18 04:29 Creatinine 1.9 mg/dL (0.7-1.2) H 06/23/18 04:29 Est GFR ( Amer) 30 06/23/18 04:29 Est GFR (Non-Af Amer) 25 06/23/18 04:29 POC Glucose (mg/dL) 129 mg/dL (65-110) H 06/22/18 16:36 Random Glucose 137 mg/dL (65-105) H 06/23/18 04:29 Hemoglobin A1c 5.4 % (4.2-6.5) 06/22/18 17:26 Calcium 8.9 mg/dl (8.6-10.4) 06/23/18 04:29 Phosphorus 5.2 mg/dL (2.5-4.5) H 06/23/18 04:29 Magnesium 2.1 mg/dL (1.6-2.3) 06/23/18 04:29 Total Bilirubin 1.2 mg/dL (0.2-1.3) 06/23/18 04:29 AST 402 U/L (14-36) H 06/23/18 04:29 ALT 81 U/L (9-52) H 06/23/18 04:29 Alkaline Phosphatase 89 U/L (38-126) 06/23/18 04:29 Total Creatine Kinase 84220 U/L (30-135) H 06/23/18 04:29 CK-MB (Mass) 68.8 ng/mL (0.0-3.38) H 06/23/18 04:29 Troponin I 0.5160 ng/mL (0.00-0.120) H* 06/23/18 04:29 Total Protein 7.0 g/dL (6.3-8.3) 06/23/18 04:29 Albumin 3.2 g/dL (3.5-5.0) L 06/23/18 04:29 Globulin 3.8 gm/dL (2.2-3.9) 06/23/18 04:29 Albumin/Globulin Ratio 0.9 (1.0-2.1) L 06/23/18 04:29 Triglycerides 184 mg/dL (0-149) H 06/22/18 17:26 Cholesterol 160 mg/dL (0-199) 06/22/18 17:26 LDL Cholesterol Direct 119 mg/dL (0-129) 06/22/18 17:26 HDL Cholesterol 24 mg/dL (30-70) L 06/22/18 17:26 Urine Color Edel (YELLOW) 06/23/18 04:31 Urine Clarity Clear (Clear) 06/23/18 04:31 Urine pH 5.0 (5.0-8.0) 06/23/18 04:31 Ur Specific [place] 1.046 (1.003-1.030) H 06/23/18 04:31 Urine Protein 1+ mg/dL (NEGATIVE) H 06/23/18 04:31 Urine Glucose (UA) Normal mg/dL (Normal) 06/23/18 04:31 Urine Ketones Negative mg/dL (NEGATIVE) 06/23/18 04:31 Urine Blood 3+ (NEGATIVE) H 06/23/18 04:31 Urine Nitrate Negative (NEGATIVE) 06/23/18 04:31 Urine Bilirubin Negative (NEGATIVE) 06/23/18 04:31 Urine Urobilinogen 4.0 mg/dL (0.2-1.0) H 06/23/18 04:31 Ur Leukocyte Esterase 3+ Jonathan/uL (Negative) H 06/23/18 04:31 Urine WBC (Auto) 46 /hpf (0-5) H 06/23/18 04:31 Urine RBC (Auto) 25 /hpf (0-3) H 06/23/18 04:31 Ur Squamous Epith Cells 3 /hpf (0-5) 06/23/18 04:31 Urine Bacteria Few (<OCC) H 06/23/18 04:31 Blood Type A POSITIVE 06/22/18 17:26 Antibody Screen Negative 06/22/18 17:26 Discharge Exam - Head Exam Head Exam: ATRAUMATIC, NORMAL INSPECTION, NORMOCEPHALIC Discharge Plan - Follow Up Plan Condition: GOOD Disposition: HOSPICE - MEDICAL FACILITY
--- NOTE | 2018-06-23 14:18 | CP.PCM.PN ---
<Debo Woods L - Last Filed: 06/23/18 15:42> Subjective - Date & Time of Evaluation Date of Evaluation: 06/23/18 Time of Evaluation: 07:00 - Subjective Subjective: Resident Progress Note for Hospitalist Service Patient examined at bedside. No acute events overnight. Patient noted to not follow commands. Responds to painful stimuli. Palliative care consulted. Patient's next of kin requests hospice evaluation and comfort measures. Objective - Vital Signs/Intake and Output Vital Signs (last 24 hours): Temp Pulse Resp BP Pulse Ox 97.6 F 66 22 163/89 H 100 06/23/18 08:30 06/23/18 13:19 06/23/18 12:46 06/23/18 08:30 06/23/18 12:46 Intake and Output: 06/23/18 06/23/18 06:59 18:59 Output Total 50 Balance -50 - Medications Medications: Current Medications Aspirin (Aspirin Supp) 300 mg NM DAILY [facility] Last Admin: 06/23/18 12:00 Dose: 300 mg Sodium Chloride (Sodium Chloride 0.9%) 1,000 mls @ 150 mls/hr IV .Q6H40M [facility] Last Admin: 06/23/18 08:20 Dose: 150 mls/hr Influenza Virus Vaccine (Flucelvax Quad 2951-1482 Syr) 60 mcg IM .ONCE ONE Stop: 06/24/18 10:01 Pneumococcal Polyvalent Vaccine (Pneumovax 23 Vaccine) 0.5 ml IM .ONCE ONE Stop: 06/27/18 10:01 - Labs Labs: 06/23/18 04:29 06/23/18 04:29 PT 14.9 SECONDS (9.7-12.2) H 06/22/18 17:26 INR 1.4 06/22/18 17:26 APTT 29 SECONDS (21-34) 06/22/18 17:26 - Constitutional Appears: No Acute Distress - Head Exam Head Exam: ATRAUMATIC, NORMOCEPHALIC - Eye Exam Eye Exam: EOMI Additional comments: right pupil pinpoint and non reactive left pupil sluggish - ENT Exam ENT Exam: Mucous Membranes Moist - Respiratory Exam Respiratory Exam: Clear to Ausculation Bilateral, NORMAL BREATHING PATTERN. absent: Accessory Muscle Use, Respiratory Distress - Cardiovascular Exam Cardiovascular Exam: REGULAR RHYTHM, +S1, +S2 - GI/Abdominal Exam GI & Abdominal Exam: Soft. absent: Distended, Firm, Rigid, Tenderness - Extremities Exam Additional comments: LLE cool to touch - Neurological Exam Neurological Exam: absent: Alert, Awake, Oriented x3 Additional comments: moves upper extremities and RLE spontaneously - Skin Skin Exam: Dry, Intact, Mottled Assessment and Plan - Assessment and Plan (Free Text) Assessment: Patient is a 88 year old female who presented with altered mental status and was found to have large right sided MCA infarct. Plan: Stroke - code stroke in ED - CTA: R ICA occluded at its origin without reconstitution throughout the remainder. Pulmonary artery hypertension. - CT head W/O contrast: Large R MCA infarct in evolution with small right BETTING CLERKS infarct affecting right cerebellar hemisphere inferiorly. - Neurology consulted. Recs appreciated. - ASA 81mg NM daily - IVF @150mL/hr Elevated troponin - EKG paced - troponins elevated x3 - CXR: Cyst findings suspicious for possible chronic interstitial pneumonitis t taya an acute component is not excluded overlying this. Cardiomegaly. 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 Awaiting hospice evaluation. Antionette (patient's daughter): Patient seen and case discussed with Dr. Dora Woods PGY-1 <Eric John - Last Filed: 06/23/18 16:03> Objective - Vital Signs/Intake and Output Vital Signs (last 24 hours): Temp Pulse Resp BP Pulse Ox 98.3 F 59 L 18 163/89 H 100 06/23/18 15:00 06/23/18 15:00 06/23/18 15:00 06/23/18 08:30 06/23/18 15:00 Intake and Output: 06/23/18 06/23/18 06:59 18:59 Intake Total 1050 Output Total 50 150 Balance -50 900 - Medications Medications: Current Medications Aspirin (Aspirin Supp) 300 mg NM DAILY [facility] Last Admin: 06/23/18 12:00 Dose: 300 mg Sodium Chloride (Sodium Chloride 0.9%) 1,000 mls @ 150 mls/hr IV .Q6H40M [facility] Last Admin: 06/23/18 14:00 Dose: 150 mls/hr Morphine Sulfate 250 mg/ (Sodium Chloride) 250 mls @ 1 mls/hr IV .Q24H PRN; Protocol PRN Reason: Pain, moderate (4-7) Influenza Virus Vaccine (Flucelvax Quad 0912-0580 Syr) 60 mcg IM .ONCE ONE Stop: 06/24/18 10:01 Pneumococcal Polyvalent Vaccine (Pneumovax 23 Vaccine) 0.5 ml IM .ONCE ONE Stop: 06/27/18 10:01 - Labs Labs: 06/23/18 04:29 06/23/18 04:29 PT 14.9 SECONDS (9.7-12.2) H 06/22/18 17:26 INR 1.4 06/22/18 17:26 APTT 29 SECONDS (21-34) 06/22/18 17:26 Attending/Attestation - Attestation I have personally seen and examined this patient.: Yes I have fully participated in the care of the patient.: Yes I have reviewed all pertinent clinical information, including history, physical exam and plan: Yes Notes (Text): 06/23/18 15:59 Medical attending: Patient was seen and examined by me. Agree with the above note by the resident The patient again this morning was non responsive to stimuli and verbal commands. This morning was noted by staff to have bluish and pallor in the lower extremtiies as well as hands and feet we suspect that she maybe having continued thromboembolic events from history of atrial fibrillation Patient's family is requesting hospice and comfort care we are consulting them now Eric John
[2018-06-24] MEDS: Sodium Chloride 0.9% 1,000 ML IV SCH ×3 (06:05→10:27)
--- NOTE | 2018-06-24 07:16 | CP.PCM.PN ---
Subjective - Date & Time of Evaluation Date of Evaluation: 06/24/18 Time of Evaluation: 07:13 - Subjective Subjective: PGY-1 Leslee Blanton D.O. Medicine progress note for Dr. Horvath's service: Patient was seen and examined this morning. As of yesterday, patient is on comfort care measures only. Patient is on morphine drip. She is unresponsive. D oes not appear to be in acute distress. ROS unobtainable. Objective - Vital Signs/Intake and Output Vital Signs (last 24 hours): Temp Pulse Resp BP Pulse Ox 97.3 F L 60 18 112/70 98 06/23/18 23:00 06/23/18 23:00 06/23/18 23:00 06/24/18 06:01 06/23/18 23:00 Intake and Output: 06/24/18 06/24/18 06:59 18:59 Intake Total 2410 Output Total 300 Balance 2110 - Medications Medications: Current Medications Aspirin (Aspirin Supp) 300 mg [place] DAILY [facility] Last Admin: 06/23/18 12:00 Dose: 300 mg Sodium Chloride (Sodium Chloride 0.9%) 1,000 mls @ 150 mls/hr IV .Q6H40M [facility] Last Admin: 06/24/18 06:06 Dose: Not Given Morphine Sulfate 250 mg/ (Sodium Chloride) 250 mls @ 1 mls/hr IV .Q24H PRN; Protocol PRN Reason: Pain, moderate (4-7) Last Admin: 06/23/18 18:40 Dose: 1 mg/hr, 1 mls/hr Influenza Virus Vaccine (Flucelvax Quad 6360-1754 Syr) 60 mcg IM .ONCE ONE Stop: 06/24/18 10:01 Pneumococcal Polyvalent Vaccine (Pneumovax 23 Vaccine) 0.5 ml IM .ONCE ONE Stop: 06/27/18 10:01 - Labs Labs: 06/23/18 04:29 06/23/18 04:29 PT 14.9 SECONDS (9.7-12.2) H 06/22/18 17:26 INR 1.4 06/22/18 17:26 APTT 29 SECONDS (21-34) 06/22/18 17:26 - Constitutional Appears: No Acute Distress - Head Exam Head Exam: ATRAUMATIC, NORMAL INSPECTION - Eye Exam Pupil Exam: Unequal (R pinpoint) - ENT Exam ENT Exam: Mucous Membranes Moist - Neck Exam Neck Exam: Normal Inspection - Respiratory Exam Respiratory Exam: Clear to Ausculation Bilateral, NORMAL BREATHING PATTERN - Cardiovascular Exam Cardiovascular Exam: RRR, +S1, +S2 Additional comments: pacemaker - GI/Abdominal Exam GI & Abdominal Exam: Soft. absent: Distended - Extremities Exam Extremities Exam: Normal Inspection - Neurological Exam Neurological Exam: absent: Alert, Awake - Skin Skin Exam: Dry, Normal Color, Warm Assessment and Plan - Assessment and Plan (Free Text) Assessment: Patient is a 88 year old female who presented with altered mental status and was found to have large right sided MCA infarct and R ICA occlusion. Palliative care was consulted. Family decided to pursue comfort care measures only on 06/23/18. Plan: COMFORT CARE Right MCA infarct COMFORT CARE - Code stroke on admission - CTA head/neck: R ICA occluded at its origin without reconstitution throughout the remainder. Pulmonary artery hypertension. - CT head: Large R MCA infarct in evolution with small right FISHING GEAR MECHANIC infarct affecting right cerebellar hemisphere inferiorly. - Discontinue ASA - O2 NC for comfort - Neurology consulted (Osorio) - Palliative consulted- family meeting on 06/23/18, comfort care only, patient does not have insurance and cannot officially be hospice Elevated troponin x3 - Trop: 0.6830, 0.7910, 0.5160 - EKG: paced - CXR: Findings suspicious for possible chronic interstitial pneumonitis though an acute component is not excluded overlying this. Cardiomegaly. Congestive heart failure - Disable pacemaker - Discontinue home meds Lasix 40 mg daily Losartan 50 mg daily Toprol XL 25 mg daily Hold Crestor due to transaminitis Atrial fibrillation - Disable pacemaker - Discontinue Eliquis 5 mg PO BID Hyperlipidemia - TG 184, erasto 160, LDL 119, HDL 24 - Discontinue statin Hypertension - Discontinue medications - No vitals Ppx: VTE: not indicated GI: not indicated Code status: DNR/DNI Dispo: Patient's next of kin requests hospice and comfort measures for patient. Antionette (patient's daughter): Case discussed with attending, Dr. Horvath.
[2018-06-24 08:00] VITALS: BP 103/65
[2018-06-24 08:31] LABS: BASO % 0.2 % (0.0-2.0); HEMOGLOBIN 13.9 g/dL (11.0-16.0); LYMPH # 0.5 K/uL (1.0-4.3); LYMPH % 3.1 % (20.0-40.0); MEAN CELL VOLUME 83.5 fL (81.0-99.0); MEAN CORPUSCULAR HEMOGLOBIN 26.6 pg (27.0-31.0); MEAN CORPUSCULAR HGB CONC 31.9 g/dL (33.0-37.0); MEAN PLATELET VOLUME 10.9 fL (7.2-11.7); MONO # 1.3 K/uL (0.0-0.8); MONO % 8.1 % (0.0-10.0); NEUT % 88.6 % (50.0-75.0); NRBC % 0.1 % (0.0-2.0); PLATELET COUNT 162 K/uL (130-400); RBC 5.24 Mil/uL (3.80-5.20); RED CELL DISTRIBUTION WIDTH 15.2 % (11.5-14.5); WHITE BLOOD COUNT 15.8 K/uL (4.8-10.8)
[2018-06-24 09:20] LABS: LYMPHOCYTE 7 % (20-40); MONOCYTE 7 % (0-10); NEUTROPHIL 86 % (50-75); PLATELET ESTIMATE NORMAL (NORMAL); TOTAL CELLS COUNTED 100
--- NOTE | 2018-06-24 09:54 | CARD ---
APPROVED REPORT Date of service: 06/22/2018 EKG Measurement Heart [id number] <Conclusion> Ventricular-paced rhythm Abnormal ECG
[2018-06-24] MEDS ORDERED: Influenza Vaccine 60 mcg/0.5 mL SYR (4YR UP) IM ONE (10:00)
[2018-06-25 01:23] VITALS: RESP 20; TEMP 97.9; O2SAT 96
[2018-06-25 03:34] VITALS: PULSE 102
--- NOTE | 2018-06-25 06:56 | CP.PCM.PN ---
Subjective - Date & Time of Evaluation Date of Evaluation: 06/25/18 Time of Evaluation: 06:55 - Subjective Subjective: PGY-1 Leslee Blanton D.O. Medicine progress note for Dr. John's service: Patient was seen and examined this morning. Patient is on comfort care measures only. Patient is on morphine drip. She is unresponsive. Does not appear to be in acute distress. ROS unobtainable. Objective - Vital Signs/Intake and Output Vital Signs (last 24 hours): Temp Pulse Resp BP Pulse Ox 97.9 F 102 H 20 103/65 96 06/24/18 23:30 06/25/18 00:05 06/24/18 23:30 06/24/18 07:59 06/24/18 23:30 Intake and Output: 06/24/18 06/25/18 18:59 06:59 Intake Total 758 68 Output Total 200 400 Balance 558 -332 - Medications Medications: Current Medications Morphine Sulfate 250 mg/ (Sodium Chloride) 250 mls @ 1 mls/hr IV .Q24H PRN; Protocol PRN Reason: Pain, moderate (4-7) Last Admin: 06/23/18 18:40 Dose: 1 mg/hr, 1 mls/hr - Labs Labs: 06/24/18 08:22 06/23/18 04:29 PT 14.9 SECONDS (9.7-12.2) H 06/22/18 17:26 INR 1.4 06/22/18 17:26 APTT 29 SECONDS (21-34) 06/22/18 17:26 - Additional Findings Additional findings: - Constitutional Appears: No Acute Distress - Head Exam Head Exam: ATRAUMATIC, NORMAL INSPECTION - Eye Exam Pupil Exam: Unequal (R pinpoint) - ENT Exam ENT Exam: Mucous Membranes Moist - Neck Exam Neck Exam: Normal Inspection - Respiratory Exam Respiratory Exam: Clear to Ausculation Bilateral, NORMAL BREATHING PATTERN - Cardiovascular Exam Cardiovascular Exam: RRR, +S1, +S2 Additional comments: pacemaker - GI/Abdominal Exam GI & Abdominal Exam: Soft. absent: Distended - Extremities Exam Extremities Exam: Normal Inspection - Neurological Exam Neurological Exam: absent: Alert, Awake - Skin Skin Exam: Dry, Normal Color, Warm Assessment and Plan - Assessment and Plan (Free Text) Assessment: Patient is a 88 year old female who presented with altered mental status and was found to have large right sided MCA infarct and R ICA occlusion. Palliative care was consulted. Family decided to pursue comfort care measures only on 06/23/18. Plan: COMFORT CARE Right MCA infarct - Code stroke on admission - CTA head/neck: R ICA occluded at its origin without reconstitution throughout the remainder. Pulmonary artery hypertension. - CT head: Large R MCA infarct in evolution with small right CORPORATE DEVELOPMENT ANALYST infarct affecting right cerebellar hemisphere inferiorly. - Discontinue ASA - O2 NC for comfort - Neurology consulted (Osorio) - Palliative consulted- family meeting on 06/23/18, comfort care only, patient do es not have insurance and cannot officially be hospice Elevated troponin x3 - Trop: 0.6830, 0.7910, 0.5160 - EKG: paced - CXR: Findings suspicious for possible chronic interstitial pneumonitis though an acute component is not excluded overlying this. Cardiomegaly. Congestive heart failure - Disable pacemaker - Discontinue home meds Lasix 40 mg daily Losartan 50 mg daily Toprol XL 25 mg daily Hold Crestor due to transaminitis Atrial fibrillation - Disable pacemaker - Discontinue Eliquis 5 mg PO BID Hyperlipidemia - TG 184, erasto 160, LDL 119, HDL 24 - Discontinue statin Hypertension - Discontinue medications - No vitals Ppx: VTE: not indicated GI: not indicated Code status: DNR/DNI Dispo: Patient's next of kin requests hospice and comfort measures for patient. Antionette (patient's daughter): Case discussed with attending, Dr. John.
--- NOTE | 2018-06-25 10:36 | CP.PCM.DIS ---
<Leslee Blanton - Last Filed: 06/25/18 12:27> Provider - Provider Date of Admission: 06/22/18 17:31 Attending physician: Tanvir Horvath MD Consults: 06/22/18 16:42 Stroke Team Consult Routine Comment: change of MS, > 24 hrs Consulting Provider: Neurohospitalist Consulting Physician: NEUROHOSP Neurohospitalist for Consult: Ramiro Selby Neurohospitalist for Consult: Dakota Osorio Reason for Consult: change of MS 06/22/18 18:18 Palliative Care Consult Stat Comment: Consulting Provider: Alecia Covarrubias Physician Instructions: Reason For Exam: S/P stroke. Family considering hospice 06/23/18 12:15 Inpatient RADIATION PROTECTION ENGINEER Core Measures Referral Routine Comment: Physician Instructions: Reason For Exam: chf Nursing Referral for Wound Care Routine Comment: Physician Instructions: Reason For Exam: sacral wound on admission Time Spent in preparation of Discharge (in minutes): 45 Diagnosis - Discharge Diagnosis (1) Right middle cerebral artery stroke Status: Acute Priority: High (2) Troponin level elevated Status: Acute Priority: Medium (3) CHF (congestive heart failure) Status: Chronic Priority: Medium (4) Afib Status: Chronic Priority: Medium (5) HLD (hyperlipidemia) Status: Chronic Priority: Medium (6) HTN (hypertension) Status: Chronic Priority: Medium (7) Hospice care Status: Acute Priority: High Hospital Course - Lab Results Lab Results: Most Recent Lab Values WBC 15.8 K/uL (4.8-10.8) H 06/24/18 08:22 RBC 5.24 Mil/uL (3.80-5.20) H 06/24/18 08:22 Hgb 13.9 g/dL (11.0-16.0) 06/24/18 08:22 Hct 43.8 % (34.0-47.0) 06/24/18 08:22 MCV 83.5 fL (81.0-99.0) 06/24/18 08:22 MCH 26.6 pg (27.0-31.0) L 06/24/18 08:22 MCHC 31.9 g/dL (33.0-37.0) L 06/24/18 08:22 RDW 15.2 % (11.5-14.5) H 06/24/18 08:22 Plt Count 162 K/uL (130-400) 06/24/18 08:22 MPV 10.9 fL (7.2-11.7) 06/24/18 08:22 Neut % (Auto) 88.6 % (50.0-75.0) H 06/24/18 08:22 Lymph % (Auto) 3.1 % (20.0-40.0) L 06/24/18 08:22 [place] % (Auto) 8.1 % (0.0-10.0) 06/24/18 08:22 Eos % (Auto) 0.0 % (0.0-4.0) 06/24/18 08:22 Baso % (Auto) 0.2 % (0.0-2.0) 06/24/18 08:22 Neut # (Auto) 14.0 K/uL (1.8-7.0) H 06/24/18 08:22 Lymph # (Auto) 0.5 K/uL (1.0-4.3) L 06/24/18 08:22 [place] # (Auto) 1.3 K/uL (0.0-0.8) H 06/24/18 08:22 Eos # (Auto) 0.0 K/uL (0.0-0.7) 06/24/18 08:22 Baso # (Auto) 0.0 K/uL (0.0-0.2) 06/24/18 08:22 Neutrophils % (Manual) 86 % (50-75) H 06/24/18 08:22 Band Neutrophils % 2 % (0-2) 06/23/18 04:29 Lymphocytes % (Manual) 7 % (20-40) L 06/24/18 08:22 Reactive Lymphs % 5 % (0-0) H 06/23/18 04:29 Monocytes % (Manual) 7 % (0-10) 06/24/18 08:22 Platelet Estimate Normal (NORMAL) 06/24/18 08:22 Poikilocytosis (manual Slight 06/22/18 17:26 Anisocytosis (manual) Slight 06/22/18 17:26 PT 14.9 SECONDS (9.7-12.2) H 06/22/18 17:26 INR 1.4 06/22/18 17:26 APTT 29 SECONDS (21-34) 06/22/18 17:26 Sodium 142 mmol/L (132-148) 06/23/18 04:29 Potassium 4.4 mmol/L (3.6-5.2) 06/23/18 04:29 Chloride 108 mmol/L (98-107) H 06/23/18 04:29 Carbon Dioxide 28 mmol/L (22-30) 06/23/18 04:29 Anion Gap 11 (10-20) 06/23/18 04:29 BUN 48 mg/dL (7-17) H 06/23/18 04:29 Creatinine 1.9 mg/dL (0.7-1.2) H 06/23/18 04:29 Est GFR ( Amer) 30 06/23/18 04:29 Est GFR (Non-Af Amer) 25 06/23/18 04:29 POC Glucose (mg/dL) 129 mg/dL (65-110) H 06/22/18 16:36 Random Glucose 137 mg/dL (65-105) H 06/23/18 04:29 Hemoglobin A1c 5.4 % (4.2-6.5) 06/22/18 17:26 Calcium 8.9 mg/dl (8.6-10.4) 06/23/18 04:29 Phosphorus 5.2 mg/dL (2.5-4.5) H 06/23/18 04:29 Magnesium 2.1 mg/dL (1.6-2.3) 06/23/18 04:29 Total Bilirubin 1.2 mg/dL (0.2-1.3) 06/23/18 04:29 AST 402 U/L (14-36) H 06/23/18 04:29 ALT 81 U/L (9-52) H 06/23/18 04:29 Alkaline Phosphatase 89 U/L (38-126) 06/23/18 04:29 Total Creatine Kinase 15705 U/L (30-135) H 06/23/18 04:29 CK-MB (Mass) 68.8 ng/mL (0.0-3.38) H 06/23/18 04:29 Troponin I 0.5160 ng/mL (0.00-0.120) H* 06/23/18 04:29 Total Protein 7.0 g/dL (6.3-8.3) 06/23/18 04:29 Albumin 3.2 g/dL (3.5-5.0) L 06/23/18 04:29 Globulin 3.8 gm/dL (2.2-3.9) 06/23/18 04:29 Albumin/Globulin Ratio 0.9 (1.0-2.1) L 06/23/18 04:29 Triglycerides 184 mg/dL (0-149) H 06/22/18 17:26 Cholesterol 160 mg/dL (0-199) 06/22/18 17:26 LDL Cholesterol Direct 119 mg/dL (0-129) 06/22/18 17:26 HDL Cholesterol 24 mg/dL (30-70) L 06/22/18 17:26 Urine Color [place] (YELLOW) 06/23/18 04:31 Urine Clarity Clear (Clear) 06/23/18 04:31 Urine pH 5.0 (5.0-8.0) 06/23/18 04:31 Ur Specific [place] 1.046 (1.003-1.030) H 06/23/18 04:31 Urine Protein 1+ mg/dL (NEGATIVE) H 06/23/18 04:31 Urine Glucose (UA) Normal mg/dL (Normal) 06/23/18 04:31 Urine Ketones Negative mg/dL (NEGATIVE) 06/23/18 04:31 Urine Blood 3+ (NEGATIVE) H 06/23/18 04:31 Urine Nitrate Negative (NEGATIVE) 06/23/18 04:31 Urine Bilirubin Negative (NEGATIVE) 06/23/18 04:31 Urine Urobilinogen 4.0 mg/dL (0.2-1.0) H 06/23/18 04:31 Ur Leukocyte Esterase 3+ Jonathan/uL (Negative) H 06/23/18 04:31 Urine WBC (Auto) 46 /hpf (0-5) H 06/23/18 04:31 Urine RBC (Auto) 25 /hpf (0-3) H 06/23/18 04:31 Ur Squamous Epith Cells 3 /hpf (0-5) 06/23/18 04:31 Urine Bacteria Few (<OCC) H 06/23/18 04:31 Blood Type A POSITIVE 06/22/18 17:26 Antibody Screen Negative 06/22/18 17:26 - Hospital Course Hospital Course: Patient is an 87 year old Ukrainian speaking female with a PMH of CAD, CHF, Atrial fibrillation, pacemaker, HTN, iron deficiency anemia, HLD, gastritis, aortic aneurysm, and thyroid nodule who was brought in by EMS due to being found unresponsive by family members at home. Patient lives at home and usually is responsive and able to communicate. Per Patient's family, Patient was last seen normal at 2PM yesterday, but she became complete unresponsive and flaccid, per Family, which prompted them to call EMS. Patient has known heart condition and HTN and has a pace-maker (per Patient's family.) Complete ROS could not be obtained due to clinical condition. Code stroke was called. Neurology was consulted. Imaging showed CT head: Large R MCA infarct in evolution with small right TEA BLENDER infarct affecting right cerebellar hemisphere inferiorly. 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 Pulmonary artery hypertension. Patient also found to have elevated troponins. Patient started on aspirin [place] and IVF. Other chronic medications held as patient NPO. Palliative care was consulted. Family decided to pursue comfort care measures only on 06/23/18. Vitals, labs, and all medications stopped. Patient was placed on morphine drip and nasal cannula for comfort. Pacemaker was disabled. Patient was accepted to [facility]. She will be discharged with a morphine drip. Discharge Exam - Additional Findings Additional findings: - Constitutional Appears: No Acute Distress - Head Exam Head Exam: ATRAUMATIC, NORMAL INSPECTION - Eye Exam Pupil Exam: Unequal (R pinpoint) - ENT Exam ENT Exam: Mucous Membranes Moist - Neck Exam Neck Exam: Normal Inspection - Respiratory Exam Respiratory Exam: Clear to Auscultation Bilateral, NORMAL BREATHING PATTERN - Cardiovascular Exam Cardiovascular Exam: RRR, +S1, +S2 Additional comments: pacemaker- magnet - GI/Abdominal Exam GI & Abdominal Exam: Soft. absent: Distended - Extremities Exam Extremities Exam: Normal Inspection - Neurological Exam Neurological Exam: absent: Alert, Awake - Skin Skin Exam: Dry, Normal Color, Warm Discharge Plan - Follow Up Plan Condition: CRITICAL Disposition: HOSPICE - HOME Instructions: Stroke, Atrial Fibrillation (DC), Heart Failure, Adult (DC) Additional Instructions: [facility] with saline lock [facility] [phone] <Eric John - Last Filed: 06/25/18 16:57> Provider - Provider Date of Admission: 06/22/18 17:31 Attending physician: Tanvir Horvath MD Consults: 06/22/18 16:42 Stroke Team Consult Routine Comment: change of MS, > 24 hrs Consulting Provider: Neurohospitalist Consulting Physician: NEUROHOSP Neurohospitalist for Consult: Ramiro Selby Neurohospitalist for Consult: Dakota Osorio Reason for Consult: change of MS 06/22/18 18:18 Palliative Care Consult Stat Comment: Consulting Provider: Alecia Covarrubias Physician Instructions: Reason For Exam: S/P stroke. Family considering hospice 06/23/18 12:15 Inpatient RADIATION PROTECTION ENGINEER Core Measures Referral Routine Comment: Physician Instructions: Reason For Exam: chf Nursing Referral for Wound Care Routine Comment: Physician Instructions: Reason For Exam: sacral wound on admission Hospital Course - Lab Results Lab Results: Most Recent Lab Values WBC 15.8 K/uL (4.8-10.8) H 06/24/18 08:22 RBC 5.24 Mil/uL (3.80-5.20) H 06/24/18 08:22 Hgb 13.9 g/dL (11.0-16.0) 06/24/18 08:22 Hct 43.8 % (34.0-47.0) 06/24/18 08:22 MCV 83.5 fL (81.0-99.0) 06/24/18 08:22 MCH 26.6 pg (27.0-31.0) L 06/24/18 08:22 MCHC 31.9 g/dL (33.0-37.0) L 06/24/18 08:22 RDW 15.2 % (11.5-14.5) H 06/24/18 08:22 Plt Count 162 K/uL (130-400) 06/24/18 08:22 MPV 10.9 fL (7.2-11.7) 06/24/18 08:22 Neut % (Auto) 88.6 % (50.0-75.0) H 06/24/18 08:22 Lymph % (Auto) 3.1 % (20.0-40.0) L 06/24/18 08:22 [place] % (Auto) 8.1 % (0.0-10.0) 06/24/18 08:22 Eos % (Auto) 0.0 % (0.0-4.0) 06/24/18 08:22 Baso % (Auto) 0.2 % (0.0-2.0) 06/24/18 08:22 Neut # (Auto) 14.0 K/uL (1.8-7.0) H 06/24/18 08:22 Lymph # (Auto) 0.5 K/uL (1.0-4.3) L 06/24/18 08:22 [place] # (Auto) 1.3 K/uL (0.0-0.8) H 06/24/18 08:22 Eos # (Auto) 0.0 K/uL (0.0-0.7) 06/24/18 08:22 Baso # (Auto) 0.0 K/uL (0.0-0.2) 06/24/18 08:22 Neutrophils % (Manual) 86 % (50-75) H 06/24/18 08:22 Band Neutrophils % 2 % (0-2) 06/23/18 04:29 Lymphocytes % (Manual) 7 % (20-40) L 06/24/18 08:22 Reactive Lymphs % 5 % (0-0) H 06/23/18 04:29 Monocytes % (Manual) 7 % (0-10) 06/24/18 08:22 Platelet Estimate Normal (NORMAL) 06/24/18 08:22 Poikilocytosis (manual Slight 06/22/18 17:26 Anisocytosis (manual) Slight 06/22/18 17:26 PT 14.9 SECONDS (9.7-12.2) H 06/22/18 17:26 INR 1.4 06/22/18 17:26 APTT 29 SECONDS (21-34) 06/22/18 17:26 Sodium 142 mmol/L (132-148) 06/23/18 04:29 Potassium 4.4 mmol/L (3.6-5.2) 06/23/18 04:29 Chloride 108 mmol/L (98-107) H 06/23/18 04:29 Carbon Dioxide 28 mmol/L (22-30) 06/23/18 04:29 Anion Gap 11 (10-20) 06/23/18 04:29 BUN 48 mg/dL (7-17) H 06/23/18 04:29 Creatinine 1.9 mg/dL (0.7-1.2) H 06/23/18 04:29 Est GFR ( Amer) 30 06/23/18 04:29 Est GFR (Non-Af Amer) 25 06/23/18 04:29 POC Glucose (mg/dL) 129 mg/dL (65-110) H 06/22/18 16:36 Random Glucose 137 mg/dL (65-105) H 06/23/18 04:29 Hemoglobin A1c 5.4 % (4.2-6.5) 06/22/18 17:26 Calcium 8.9 mg/dl (8.6-10.4) 06/23/18 04:29 Phosphorus 5.2 mg/dL (2.5-4.5) H 06/23/18 04:29 Magnesium 2.1 mg/dL (1.6-2.3) 06/23/18 04:29 Total Bilirubin 1.2 mg/dL (0.2-1.3) 06/23/18 04:29 AST 402 U/L (14-36) H 06/23/18 04:29 ALT 81 U/L (9-52) H 06/23/18 04:29 Alkaline Phosphatase 89 U/L (38-126) 06/23/18 04:29 Total Creatine Kinase 40980 U/L (30-135) H 06/23/18 04:29 CK-MB (Mass) 68.8 ng/mL (0.0-3.38) H 06/23/18 04:29 Troponin I 0.5160 ng/mL (0.00-0.120) H* 06/23/18 04:29 Total Protein 7.0 g/dL (6.3-8.3) 06/23/18 04:29 Albumin 3.2 g/dL (3.5-5.0) L 06/23/18 04:29 Globulin 3.8 gm/dL (2.2-3.9) 06/23/18 04:29 Albumin/Globulin Ratio 0.9 (1.0-2.1) L 06/23/18 04:29 Triglycerides 184 mg/dL (0-149) H 06/22/18 17:26 Cholesterol 160 mg/dL (0-199) 06/22/18 17:26 LDL Cholesterol Direct 119 mg/dL (0-129) 06/22/18 17:26 HDL Cholesterol 24 mg/dL (30-70) L 06/22/18 17:26 Urine Color [place] (YELLOW) 06/23/18 04:31 Urine Clarity Clear (Clear) 06/23/18 04:31 Urine pH 5.0 (5.0-8.0) 06/23/18 04:31 Ur Specific [place] 1.046 (1.003-1.030) H 06/23/18 04:31 Urine Protein 1+ mg/dL (NEGATIVE) H 06/23/18 04:31 Urine Glucose (UA) Normal mg/dL (Normal) 06/23/18 04:31 Urine Ketones Negative mg/dL (NEGATIVE) 06/23/18 04:31 Urine Blood 3+ (NEGATIVE) H 06/23/18 04:31 Urine Nitrate Negative (NEGATIVE) 06/23/18 04:31 Urine Bilirubin Negative (NEGATIVE) 06/23/18 04:31 Urine Urobilinogen 4.0 mg/dL (0.2-1.0) H 06/23/18 04:31 Ur Leukocyte Esterase 3+ [place]/uL (Negative) H 06/23/18 04:31 Urine WBC (Auto) 46 /hpf (0-5) H 06/23/18 04:31 Urine RBC (Auto) 25 /hpf (0-3) H 06/23/18 04:31 Ur Squamous Epith Cells 3 /hpf (0-5) 06/23/18 04:31 Urine Bacteria Few (<OCC) H 06/23/18 04:31 Blood Type A POSITIVE 06/22/18 17:26 Antibody Screen Negative 06/22/18 17:26 Attending/Attestation - Attestation I have personally seen and examined this patient.: Yes I have fully participated in the care of the patient.: Yes I have reviewed all pertinent clinical information, including history, physical exam and plan: Yes Notes (Text): 06/25/18 16:54 Medical attending: Patient was seen and examined by me. Agree with the above note by the resident The patient as mentioned previously is DNR and DNI and at some point from what I understand will be leaving later today to have hospice care at home. The patient is currently appearing comfortable on a low dose morphine ggt. Other family members whom I had not met before were present at bedside and we introduced ourselves and spoke with them. They were expcting her to go home for hospice later today thank you Eric John
--- NOTE | 2018-06-25 15:08 | CARD ---
APPROVED REPORT Date of service: 06/23/2018 EKG Measurement Heart [id number] <Conclusion> Ventricular-paced rhythm Abnormal ECG
--- NOTE | 2018-06-26 03:49 | CP.PCM.PRO ---
Pronouncement of Note - Clinical Findings Physical Exam: No Response Verbal/Painful Stimuli, Absent Peripheral Puls es{Carotid & Femoral}, Absent Heart & Breath Sounds, No Pupillary Light Reflex, No Corneal Reflex, Pupils Fixed & Dilated, Absence of Vital Signs - Pronouncement Time Time of Pronouncement of : 03:26 - Notifications Pronouncement Notifications: Family Notified (phone voicemail left x2: [phone] was incorrect number. Messages left on [phone]), Atending Notified (Dr. Lloyd Wells) Senior Sas Developer Notified: No - Autopsy Autopsy Requested: No - [place] [id number]
[2018-06-27] MEDS ORDERED: Pneumococcal 23-Valent Vaccine IM ONE (10:00)
== END 2018-06-26 03:26 | DRG 64 ==
LOC: C.ER 16:40 → EDBD 17:31 → C.9E 17:31 → C.5S 06-23 07:06
PROVIDERS: ADMIT Internal Medicine; ATTEND Internal Medicine
DX: I63.511 Cerebral infarction due to unspecified occlusion or stenosis of right middle cerebral artery (principal); I63.231 Cerebral infarction due to unspecified occlusion or stenosis of right carotid arteries; I63.531 Cerebral infarction due to unspecified occlusion or stenosis of right posterior cerebral artery; R29.722 NIHSS score 22; I11.0 Hypertensive heart disease with heart failure; I25.10 Atherosclerotic heart disease of native coronary artery without angina pectoris; I27.21 Secondary pulmonary arterial hypertension; I48.2 Chronic atrial fibrillation; I50.9 Heart failure, unspecified; Z51.5 Encounter for palliative care; Z66 Do not resuscitate; D72.829 Elevated white blood cell count, unspecified; E78.5 Hyperlipidemia, unspecified; E04.2 Nontoxic multinodular goiter; K29.70 Gastritis, unspecified, without bleeding; R74.8 Abnormal levels of other serum enzymes; D50.9 Iron deficiency anemia, unspecified; Z79.899 Other long term (current) drug therapy; Z86.711 Personal history of pulmonary embolism; Z79.01 Long term (current) use of anticoagulants; Z95.0 Presence of cardiac pacemaker